=== PATIENT | female | born 1980 | race Caucasian/White ===

== ENCOUNTER 2018-04-14 15:12 | Inpatient (IN) | payer OTHER ==
[2018-04-14] MEDS ORDERED: Zolpidem Tartrate 5 MG TAB PO PRN (15:56)
[2018-04-14] MEDS ORDERED: Misoprostol 200 MCG TAB PR PRN (15:56)
[2018-04-14] MEDS ORDERED: HYDROcodone/Acetaminophen 5/325 mg Tablet PO PRN ×2 (15:56)
[2018-04-14] MEDS ORDERED: Docusate 100 MG CAP PO PRN (15:56)
[2018-04-14] MEDS ORDERED: Butorphanol Tartrate 1 MG/ML VIAL SLOW IVP PRN (15:56)
[2018-04-14] MEDS ORDERED: Promethazine HCl 25 MG/ML VIAL IM PRN ×2 (15:56→18:26)
[2018-04-14] MEDS ORDERED: Ibuprofen 800 MG TAB PO PRN (15:56)
[2018-04-14] MEDS ORDERED: Lidocaine 1% (PF) 30 ML VIAL SC PRN (15:56)
[2018-04-14] MEDS ORDERED: Acetaminophen 500 MG TAB PO PRN (15:56)
[2018-04-14] MEDS ORDERED: Ondansetron HCl/PF 4 MG/2 ML Vial IVP PRN ×2 (15:56→18:26)
[2018-04-14] MEDS ORDERED: Diphenoxylate HCl/Atropine Tablet PO PRN ×2 (15:56)
[2018-04-14] MEDS ORDERED: NS w/ Oxytocin 10 units 500 ML IV SCH (16:00)
[2018-04-14 16:01] VITALS: BMI 36.2
[2018-04-14] MEDS: Lactated Ringer's 1,000 ML IV SCH ×4 (16:15→21:15)
[2018-04-14] MEDS ORDERED: Fentanyl 4 mcg/Bup 0.1% Cadd 100 ML ONE (16:25)
[2018-04-14 16:48] LABS: Hemoglobin 11.3 g/dL (12.0-16.0); Mean Corpuscular HGB CONC 32.9 g/dL (32.0-36.0); Mean Corpuscular Hemoglobin 28.5 pg (27.0-31.0); Mean Corpuscular Volume 86.5 fL (78.0-98.0); Mean Platelet Volume 7.8 fL (7.4-10.4); Platelet Count 234 thou/uL (130-400); RBC Distribution Width 12.4 % (11.5-14.5); Red Blood Cell (RBC) Count 3.97 mill/uL (4.20-5.40); White Blood Cell (WBC) Count 12.4 thou/uL (4.8-10.8)
[2018-04-14] MEDS ORDERED: Fentanyl 100 MCG/2 ML VIAL ONE (17:11)
[2018-04-14 17:26] LABS: Syphilis Antibody Nonreactive (Nonreactive); Syphilis Antibody Index 0.05 S/CO (<1.00 Non-Reactive)
[2018-04-14 17:46] LABS: HBSAg Index 0.23 S/CO (0-0.99); Hep B Surf Ag Non-Reactive S/CO (NonReactive)
[2018-04-14] MEDS ORDERED: diphenhydrAMINE 50 MG/ML VIAL ONE (17:59)
[2018-04-14] MEDS ORDERED: Lactated Ringer's 500 ML IV PRN (18:26)
[2018-04-14] MEDS ORDERED: Hydrocerin (Eucerin) Cream 120 gm Jar TOP PRN (18:26)
[2018-04-14] MEDS ORDERED: Naloxone HCl 0.4 mg/ml Vial IVP PRN ×2 (18:26)
[2018-04-14] MEDS ORDERED: diphenhydrAMINE 50 MG/ML VIAL IVP PRN (18:26)
[2018-04-14] MEDS ORDERED: ePHEDrine/0.9% NaCl/PF SYRINGE 50 mg/10 ml SLOW IVP PRN (18:26)
[2018-04-14] MEDS ORDERED: Acetaminophen 325 MG TAB PO PRN (18:26)
[2018-04-14] MEDS ORDERED: Communication Order-Pharmacy FS SCH (18:30)
[2018-04-14] MEDS ORDERED: Fentanyl 4 mcg/Bupivacaine 0.1% Cassette 100 ML EPIDURAL SCH (18:30)
[2018-04-14] MEDS: NS / Oxytocin 40 units/1000ml 1,000 ML IV PRN ×2 (22:40→23:40)
[2018-04-15] MEDS: Prenatal Vitamin 1 TAB PO SCH (10:02)
[2018-04-15] MEDS: Ferrous Sulfate 325 MG TAB PO SCH ×2 (10:02→17:23)
[2018-04-15] MEDS: Ibuprofen 800 MG TAB PO SCH ×2 (10:02→17:31)
[2018-04-16] MEDS: Lactated Ringer's 1,000 ML IV SCH ×3 (00:15→16:50)
[2018-04-16] MEDS: Ibuprofen 800 MG TAB PO SCH ×3 (03:17→16:50)
[2018-04-16 07:58] VITALS: BP 132/85; TEMP 97.9
[2018-04-16] MEDS: Ferrous Sulfate 325 MG TAB PO SCH ×2 (08:54→16:54)
[2018-04-16] MEDS: Prenatal Vitamin 1 TAB PO SCH (09:09)
== END 2018-04-16 18:40 | disposition home or self-care (01) | DRG 807 ==
LOC: L&D 15:12 → 3SW 04-15 01:15
PROVIDERS: ADMIT Obstetrics & Gynecology; ATTEND Obstetrics & Gynecology
PROC: 10E0XZZ Delivery of Products of Conception, External Approach (ICD-10-PCS; principal; 2018-04-14)
PROC: 10907ZC Drainage of Amniotic Fluid, Therapeutic from Products of Conception, Via Natural or Artificial Opening (ICD-10-PCS; 2018-04-14)
DX: O76 Abnormality in fetal heart rate and rhythm complicating labor and delivery (principal); Z37.0 Single live birth; Z3A.38 38 weeks gestation of pregnancy
CPT/HCPCS: 36415; 51702; 85027; 86780; 86850; 86900; 86901; 87340; J1200; J3010